=== PATIENT | male | born 1995 ===

== ENCOUNTER → 2018-08-24 | Outpatient (CLI) | payer OTHER | LOC: ZCOL.LAB 16:21 | DX: J02.9 Acute pharyngitis, unspecified (principal) ==

== ENCOUNTER 2019-10-20 01:03 | Observation (INO) | payer SELFPAY ==
[2019-10-20] VITALS (7 sets, daily range): BP systolic 103–158; BP diastolic 56–141; PULSE 49–94; TEMP 98–98.1
[~2019-10-20] VITALS: Ht 180.3 cm; Wt 90.9 kg
[2019-10-20] MEDS ORDERED: AMOXICILLIN 8751 TAB PO ×2 (02:17→13:19)
--- NOTE | 2019-10-20 09:15 | NUR ---
Received patient from PACU per bed. Right arm elevated on pillows. Dressing/ samuel wrap CDI. Able to move fingers. No c/o pain. Friend in room.
--- NOTE | 2019-10-20 10:38 | NUR ---
Plan: To return home with roommates. Patient listed Family Friends Billy and Madelaine Mota as care support and is EMR, he was not able to provide a phone number. Patient does not currently have a DPOA and declined one at this time, and currently lives in [facility]. Assess: SW met with patient at his bedside. Patient indicated that he does not use any DME and that he receives services from [facility] and so he does not have a current PCP, or any upcoming appointments. Patient reports that he obtains his medications from [facility] with no concerns. Patient declined a need for HH services at this time. Action: No additional concerns identified at th is time. Patient was educated on community resources and supports. Patient reports that he will be moving to [place] in the next 2 weeks.
[2019-10-20] MEDS ORDERED: NORCO 325 MG-7.1 TAB PO (13:20)
--- NOTE | 2019-10-20 14:00 | NUR ---
No c/o pain. Ambulatory in room. Right hand dressing CDI. Prescriptions given. Dismissed to home with friend.
== END 2019-10-20 14:00 | disposition home or self-care (01) ==
LOC: COL.ER 01:03 → SURG 07:43
PROVIDERS: ADMIT Orthopaedic Surgery
DX: S66.324A Laceration of extensor muscle, fascia and tendon of right ring finger at wrist and hand level, initial encounter (principal); S61.254A Open bite of right ring finger without damage to nail, initial encounter; F98.8 Other specified behavioral and emotional disorders with onset usually occurring in childhood and adolescence; F41.9 Anxiety disorder, unspecified; F32.9 Major depressive disorder, single episode, unspecified; F17.290 Nicotine dependence, other tobacco product, uncomplicated; Y04.1XXA Assault by human bite, initial encounter
CPT/HCPCS: G0378; J0171; J0295; J2250; J2405; J2704; J3010; J7030